=== PATIENT | male | born 1995 | race Caucasian/White ===

== ENCOUNTER 2021-09-17 01:12 | Emergency (ER) | payer OTHER, SELFPAY ==
[2021-09-17 01:15] VITALS: BP 134/85; PULSE 91; RESP 18; TEMP 36.9; O2SAT 99
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
[2021-09-17] MEDS: Tetanus & Diphtheria Tox,ADULT 0.5 ML VIAL IM (02:16)
== END 2021-09-17 02:33 | disposition home or self-care (01) ==
PROVIDERS: Emergency Provider Emergency Medicine; PCP Nurse Practitioner Family
DX: S01.01XA Laceration without foreign body of scalp, initial encounter (principal); Z23 Encounter for immunization; Z87.891 Personal history of nicotine dependence; V86.69XA Passenger of other special all-terrain or other off-road motor vehicle injured in nontraffic accident, initial encounter
CPT/HCPCS: 12001; 90471; 99284; 70450; 72125; 99282; 99283